=== PATIENT | female | born 1985 | race Caucasian/White ===

== ENCOUNTER 2021-10-05 11:51 | Emergency (ER) | payer MEDICAID, OTHER ==
[~2021-10-05] VITALS: Ht 154.9 cm; Wt 172.4 kg
[2021-10-05 13:33] VITALS: BP 143/85
[2021-10-05] MEDS ORDERED: KETOROLAC TROMETH 60MG/2ML VIAL IM ONE (14:15)
== END 2021-10-05 14:31 | disposition home or self-care (01) ==
LOC: ER 11:51
DX: S90.31XA Contusion of right foot, initial encounter (principal); J44.9 Chronic obstructive pulmonary disease, unspecified; Z88.0 Allergy status to penicillin; W22.8XXA Striking against or struck by other objects, initial encounter; Y93.01 Activity, walking, marching and hiking; Y92.89 Other specified places as the place of occurrence of the external cause; Y99.8 Other external cause status
CPT/HCPCS: 73630; 96372; 99283; J1885